=== PATIENT | male | born 1995 | race Caucasian/White ===

== ENCOUNTER 2016-11-02 03:47 | Emergency (ER) | payer BC, OTHER ==
[~2016-11-02] VITALS: Ht 198.1 cm; Wt 179.0 kg
[2016-11-02 03:50] VITALS: TEMP 36.8; Ht 198.1 cm; Wt 179.0 kg
[2016-11-02] MEDS ORDERED: HYDR-5688 PO (05:24)
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
[2016-11-02 05:40] VITALS: BP 136/73; PULSE 117; O2SAT 96
--- NOTE | 2016-11-02 07:38 | DIAGNOSTIC IMAGING REPORT ---
RIGHT HAND 4 VIEWS HISTORY: Right hand pain. r/o injury to right hand Right COMPARISON: None. FINDINGS: Displaced fractures at the proximal shaft of the fourth and fifth metacarpals. The fourth metacarpal fracture demonstrates up to 7 mm of dorsal displacement area the fifth metacarpal fracture demonstrates 3 mm of radial displacement. There is adjacent soft tissue swelling. No dislocation. No radiopaque foreign bodies. IMPRESSION: Displaced fractures at the proximal shaft of the fourth and fifth metacarpals. Electronically signed by: Stiven Edmondson M.D. 11/02/2016 7:37 AM Dictated Date/Time: 11/02/2016 7:35 AM
== END 2016-11-02 05:41 | disposition home or self-care (01) ==
LOC: C.EDB 03:48 → C.EDA 05:41
DX: S62.324A Displaced fracture of shaft of fourth metacarpal bone, right hand, initial encounter for closed fracture (principal); X58.XXXA Exposure to other specified factors, initial encounter